=== PATIENT | female | born 1995 | race Caucasian/White ===

== ENCOUNTER 2023-03-23 12:12 | Emergency (ER) | payer MEDICAID ==
[~2023-03-23] VITALS: Ht 165.1 cm; Wt 63.6 kg
[2023-03-23 14:31] VITALS: BP 109/61; PULSE 60; RESP 16; O2SAT 100
[2023-03-23 15:09] LABS: URINE AMPHETAMINE SCREEN NEGATIVE (Neg); URINE BARBITUATE SCREEN NEGATIVE (Neg); URINE BENZODIAZEPINES SCREEN NEGATIVE (Neg); URINE CANNABINOID SCREEN NEGATIVE (Neg); URINE COCAINE SCREEN NEGATIVE (Neg); URINE METHADONE SCREEN NEGATIVE (Neg); URINE OPIATE SCREEN NEGATIVE (Neg); URINE PHENCYCLIDINE SCREEN NEGATIVE (Neg)
[2023-03-23 15:10] LABS: BILIRUBIN,URINE NEGATIVE (Neg); CLARITY,URINE CLEAR (Clear); COLOR,URINE STRAW (Yellow); GLUCOSE, URINE NEGATIVE (Neg); KETONES,URINE NEGATIVE (Neg); LEUKOCYTE ESTERASE ,URINE NEGATIVE (Neg); NITRITES, URINE NEGATIVE (Neg); OCCULT BLOOD,URINE TRACE-INTACT (Neg); PH,URINE 6.5 (4.8-8.0); PROTEIN,URINE NEGATIVE (Neg); UROBILINOGEN,URINE 0.2 E.U/dL (0.2-1.0)
[2023-03-23 15:20] LABS: UA COLLECTION TYPE CLN CATCH MIDSTREAM
[2023-03-23 15:29] LABS: BACTERIA,URINE FEW /HPF (Neg); MUCUS STRANDS NONE SEEN /LPF (Neg); RBC,URINE 0-2 /HPF (0-2); SQUAMOUS EPITHELIAL CELL,UR FEW /LPF (FEW); WBC,URINE 0-4 /HPF (0-4)
--- NOTE | 2023-03-23 16:09 | NUR ---
pt being evaluated forwhat she states is heavier then spotting bleeding but is only wearing a liner and has not been filling pads. Pt states she has a hx of miscarriage and pcos and septate uterine. pt states slight cramping but is mainly concerned about a misscariage as this is the furthest she has gotten in a X1 miscarriage bp 123/76 100 o2 and 4/10 pain 66 hr
[2023-03-23] MEDS ORDERED: normal saline 1000ML IV soln IV ONE (16:40)
[2023-03-23] MEDS ORDERED: piperacillin/tazo 3.375gm/50ml 50 ML IV ONE (16:40)
[2023-03-23 17:16] LABS: BASOPHILS % (AUTO) 0.2 % (0-1); EOSINOPHILS % (AUTO) 0.3 % (0-6); HEMATOCRIT 38.9 % (35.0-45.0); HEMOGLOBIN 13.2 g/dl (12.0-16.0); LYMPHOCYTES # (AUTO) 2.4 X10'3 (1.1-4.8); LYMPHOCYTES % (AUTO) 24.2 % (21-51); MEAN CORPUSCULAR HEMOGLOBIN 32.4 PG (27.0-31.0); MEAN CORPUSCULAR HGB CONC 33.8 g/dL (33.0-36.5); MONOCYTES # (AUTO) 0.7 X10'3 (0-0.9); MONOCYTES % (AUTO) 6.8 % (2-12); NEUTROPHILS # (AUTO) 6.7 X10'3 (1.8-7.7); NEUTROPHILS % (AUTO) 68.5 % (42-75); PLATELET COUNT 303 X10'3 (140-440); RED BLOOD COUNT 4.06 X10'6 (4.20-5.60); RED CELL DISTRIBUTION WIDTH 11.7 % (11.5-14.5); WHITE BLOOD COUNT 9.8 X10'3 (4.5-11.0)
[2023-03-23 17:32] VITALS: TEMP 97.6
== END 2023-03-23 17:34 | disposition home or self-care (01) ==
LOC: ER 12:13
DX: O20.0 Threatened abortion (principal); O41.8X10 Other specified disorders of amniotic fluid and membranes, first trimester, not applicable or unspecified; Z3A.01 Less than 8 weeks gestation of pregnancy; Z79.899 Other long term (current) drug therapy
CPT/HCPCS: 36415; 76801; 80305; 81001; 84702; 85025; 86900; 86901; 99284; J7030